=== PATIENT | male | born 1960 | race Caucasian/White ===

== ENCOUNTER → 2025-03-05 10:56 | Outpatient (REF) | payer OTHER, SELFPAY ==
--- NOTE | 2025-03-05 12:56 | EEG.RPT ---
Electroencephalogram Report
Recording
Date of EE03/05/25
Type of EEG: Routine
Length of EEG recordin minutes
Done with Video Recording: Yes
Patient Status: Outpatient
Recording Conditions: Awake and Drowsy
Hyperventilation Performed: Yes
Photic Stimulation Performed: Yes
Report
LESS THAN 1 HOUR EEG REPORT
LESS THAN 1 HOUR EEG INTERPRETATION:
Unremarkable EEG for age
CLINICAL CORRELATION:
A normal EEG does not rule out a diagnosis of epilepsy. If clinical suspicion for seizure persists, a prolonged recording may be warranted.
Clinical correlation is advised.
METHODS:
A 21 channel digitized electroencephalogram (EEG) was performed using the 10/20 international system of electrode placement and one-lead of ECG recorded. Video was recorded. Persyst quantitative EEG analysis was performed.
ELECTROENCEPHALOGRAPHER IMPRESSION(S):
Quality of study
Good
Background
There was an unremarkable anterior-posterior voltage gradient of alpha frequency.
With eye opening the background activity changed to a low voltage mixture of frequencies.
There were no significant asymmetries of background activity noted.
Sleep
Drowsiness present
Hyperventilation
No driving
Photic Stimulation
No driving
ECG
Normal sinus rhythm
== END ==
LOC: RCS 10:56
PROVIDERS: ATTENDING PHYSICIAN Psychiatry & Neurology Neurology
DX: G40.89 Other seizures (principal)
CPT/HCPCS: 95816